=== PATIENT | male | born 1990 | race Caucasian/White ===

== ENCOUNTER 2018-10-06 15:57 | Emergency (ER) | payer MEDICAID ==
[~2018-10-06] VITALS: Ht 185.4 cm; Wt 96.6 kg
[2018-10-06 16:28] LABS: BASOPHILS # (AUTO) 0.02 x10^3/uL (0-0.1); BASOPHILS % (AUTO) 0 % (0-1); EOSINOPHILS # (AUTO) 0.05 x10^3/uL (0-0.4); EOSINOPHILS % (AUTO) 0 % (1-7); LYMPHOCYTES # (AUTO) 2.37 x10^3/uL (1-3.4); LYMPHOCYTES % (AUTO) 22 % (22-44); MD NO; MEAN CORPUSCULAR HEMOGLOBIN 29.9 pg (27.5-34.5); MEAN CORPUSCULAR HGB CONC 33.9 g/dL (33.2-36.2); MEAN PLATELET VOLUME 7.6 fL (7.4-10.4); MONOCYTES % (AUTO) 5 % (2-9); NEUTROPHILS # (AUTO) 8.08 x10^3/uL (1.8-6.8); NEUTROPHILS % (AUTO) 73 % (42-75); PLATELET COUNT 371 x10^3/uL (130-400); RED BLOOD COUNT 5.69 x10^6/uL (4.38-5.82); RED CELL DISTRIBUTION WIDTH 13.6 % (9.4-14.8)
--- NOTE | 2018-10-06 16:29 | NUR ---
PT FROM LOBBY TO ROOM AT THIS TIME
[2018-10-06 16:40] LABS: ALBUMIN 4.9 g/dL (3.4-5.0); ANION GAP 10 mmol/L (5-15); CALCIUM 9.9 mg/dL (8.5-10.1); CHLORIDE 106 mmol/L (98-107); CREATININE 1.03 mg/dL (0.7-1.3); T4 (THYROXINE) 12.2 mcg/dL (4.5-12.1)
[2018-10-06] MEDS ORDERED: LORazepam 1MG TABLET ONE (16:40)
[2018-10-06 16:43] LABS: TROPONIN I < 0.015 ng/mL (0.000-0.045)
--- NOTE | 2018-10-06 16:57 | NUR ---
PT PRESENTING TO ER FOR ANXIETY ATTACK. CONNECTED TO MONITORING, VSS. HR WNL NOW. PA TO BEDSIDE, ORDERS RECEIVED. CALL LIGHT WITHIN REACH
[2018-10-06] MEDS ORDERED: LORazepam 1MG TABLET PO ONE (17:00)
--- NOTE | 2018-10-06 18:13 | NUR ---
STILL AWAITING RECORDS FROM [facility] FOR FURTHER DISPO
[2018-10-06 18:32] VITALS: BP 129/78
--- NOTE | 2018-10-06 18:32 | NUR ---
ADDITIONAL ORDERS RECEIVED. PA AT BEDSIDE TO UPDATE PT
--- NOTE | 2018-10-06 18:51 | NUR ---
PT HAD BOUT OF ST, HR IN 140S-150S. PLACED ON PERSONNEL ADMINISTRATOR AND EKG REPEATED, MD TRACY
--- NOTE | 2018-10-06 19:32 | NUR ---
PA TO BEDSIDE TO UPDATE PT ON POC
== END 2018-10-06 19:58 | disposition home or self-care (01) ==
LOC: ED 19:52
DX: R00.2 Palpitations (principal); F41.1 Generalized anxiety disorder; Z87.891 Personal history of nicotine dependence
CPT/HCPCS: 36415; 71045; 80048; 82040; 84436; 84443; 84484; 85025; 85379; 93005; 99284